=== PATIENT | male | born 1965 | race Two or more races ===

== ENCOUNTER 2017-12-19 20:07 | Observation (INO) | payer OTHER ==
[~2017-12-19] VITALS: Ht 167.6 cm; Wt 89.9 kg
[2017-12-19] MEDS ORDERED: SODIUM CHLORIDE FLUSH 10ML SYR IVF ONE (20:30)
[2017-12-19] MEDS ORDERED: ASPIRIN 81 MG TABLET CHEW PO ONE ×2 (20:30)
[2017-12-19] MEDS ORDERED: NITROGLYCERIN SINGLE TAB 0.4 MG SL PRN (20:30)
[2017-12-19] MEDS ORDERED: NITROGLYCERIN OINT 2%, 1GM TP ONE ×2 (20:30→21:00)
[2017-12-19 20:43] LABS: BASOPHILS # (AUTO) 0.04 x10^3/uL (0-0.1); BASOPHILS % (AUTO) 1 % (0-1); EOSINOPHILS # (AUTO) 0.19 x10^3/uL (0-0.4); EOSINOPHILS % (AUTO) 3 % (1-7); LYMPHOCYTES # (AUTO) 2.63 x10^3/uL (1-3.4); LYMPHOCYTES % (AUTO) 46 % (22-44); MD NO; MEAN CORPUSCULAR HEMOGLOBIN 31.6 pg (27.5-34.5); MEAN CORPUSCULAR HGB CONC 34.7 g/dL (33.2-36.2); MEAN PLATELET VOLUME 8.8 fL (7.4-10.4); MONOCYTES # (AUTO) 0.67 x10^3/uL (0.2-0.8); MONOCYTES % (AUTO) 12 % (2-9); NEUTROPHILS # (AUTO) 2.24 x10^3/uL (1.8-6.8); NEUTROPHILS % (AUTO) 39 % (42-75); PLATELET COUNT 197 x10^3/uL (130-400); RED BLOOD COUNT 4.88 x10^6/uL (4.38-5.82); RED CELL DISTRIBUTION WIDTH 13.3 % (9.4-14.8)
[2017-12-19 20:51] LABS: ALBUMIN 3.8 g/dL (3.4-5.0); ANION GAP 11 mmol/L (5-15); CALCIUM 8.4 mg/dL (8.5-10.1); CHLORIDE 104 mmol/L (98-107); CREATININE 0.92 mg/dL (0.7-1.3)
[2017-12-19 20:55] LABS: TROPONIN I < 0.015 ng/mL (0.000-0.045)
[2017-12-19] MEDS ORDERED: ASPIRIN 81 MG TABLET CHEW ONE (21:00)
[2017-12-19] MEDS ORDERED: NITROGLYCERIN SINGLE TAB 0.4 MG SL ONE (21:00)
[2017-12-19 23:18] VITALS: BP 166/88
[2017-12-19] MEDS ORDERED: ONDANSETRON 2MG/ML, 2ML IVPush PRN (23:30)
[2017-12-19] MEDS ORDERED: hydrALAzine 20 MG/ML, 1ML IVPush PRN (23:30)
[2017-12-19] MEDS ORDERED: ACETAMINOPHEN 325 MG TABLET PO PRN (23:30)
[2017-12-19] MEDS ORDERED: KETOROLAC 30 MG/1 ML IV ONE (23:30)
[2017-12-19] MEDS ORDERED: morphine SULFATE 10 MG/ML, 1ML IVPush PRN (23:30)
[2017-12-19] MEDS ORDERED: TEMAZEPAM 15 MG CAPSULE PO PRN (23:30)
[2017-12-19] MEDS ORDERED: ONDANSETRON ODT 4 MG PO PRN (23:30)
[2017-12-19] MEDS ORDERED: ACETAMINOPHEN 500 MG TABLET PO PRN (23:45)
[2017-12-19] MEDS: SODIUM CHLORIDE 0.9% 1,000 ML IV SCH (23:48)
[2017-12-20 01:13] VITALS: BP 168/82
[2017-12-20 03:10] LABS: CHOL/HDL RATIO 7.5; LDL/HDL RATIO 4.9 (0.5-3.0)
[2017-12-20 03:12] LABS: TROPONIN I < 0.015 ng/mL (0.000-0.045)
[2017-12-20] MEDS ORDERED: PANTOPRAZOLE 40 MG IV IVPush SCH (07:30)
[2017-12-20 07:32] VITALS: BP 165/93
[2017-12-20] MEDS ORDERED: CHLORTHALIDONE 25 MG TABLET PO SCH (09:00)
[2017-12-20] MEDS: SODIUM CHLORIDE 0.9% 1,000 ML IV SCH (09:02)
[2017-12-20 09:09] LABS: TROPONIN I < 0.015 ng/mL (0.000-0.045)
[2017-12-20] MEDS ORDERED: REGADENOSON 0.4 MG/5 ML SYRINGE ONE (09:45)
[2017-12-20] MEDS ORDERED: LOSARTAN 50MG TABLET PO SCH (11:00)
[2017-12-20 11:49] VITALS: BP 151/80
[2017-12-20 12:36] LABS: HEMOGLOBIN A1C 5.6 % (4.2-6.3)
[2017-12-20] MEDS ORDERED: LOSA50TA2 PO (13:47)
[2017-12-20] MEDS ORDERED: ATOR-2 PO (13:47)
[2017-12-20] MEDS ORDERED: CHLO25TA PO (13:47)
[2017-12-20] MEDS ORDERED: LOVASTATIN 20 MG TABLET PO SCH (21:00)
[2017-12-20] MEDS ORDERED: ATORVASTATIN 80 MG TABLET PO SCH (21:00)
== END 2017-12-20 17:21 | disposition home or self-care (01) ==
LOC: ED 21:38 → EDIP 21:47 → INTOOBSV 21:47 → 5SO 23:09
PROVIDERS: ADMIT Hospitalist; ATTEND Hospitalist
DX: R07.89 Other chest pain (principal); E78.1 Pure hyperglyceridemia; E78.5 Hyperlipidemia, unspecified; I51.7 Cardiomegaly; M72.2 Plantar fascial fibromatosis; Z79.82 Long term (current) use of aspirin; I11.9 Hypertensive heart disease without heart failure
CPT/HCPCS: 36415; 71045; 78452; 80048; 80061; 82040; 83036; 83690; 84484; 85025; 85379; 93005; 93017; 93306; 96361; 96374; 99285; A9502; C9113; C9898; G0378; J2785; J7030